=== PATIENT | male | born 1955 | race Caucasian/White ===

== ENCOUNTER 2024-03-02 08:38 | Outpatient (OUT) | payer OTHER, SELFPAY ==
--- NOTE | 2024-03-02 08:40 | CT_ITS ---
[address] [address] Patient Name: WILMA RENTERIA MRN: [id number] date: 1955 Sex: M Assigned Patient Location: CT Current Patient Location: CT Accession/Order Number: [id number] Exam Date: 03/02/2024 08:46 Report Date: 03/02/2024 13:22 At the request of: DULCE MARIA AGUILA Procedure: CT lung screening low-dose EXAMINATION: CT lung screening low-dose HISTORY: Nicotine Dependence F17.210 COMPARISON: 10/28/2013 TECHNIQUE: Axial, Coronal, and Sagittal images were created without the administration of IV contrast material. Dose reduction techniques were achieved by using automated exposure control and/or adjustment of mA and/or kV according to patient size and/or use of iterative reconstruction technique. FINDINGS: LUNGS: Moderate to severe diffuse centrilobular emphysema with an upper lobe predominance, progressed from the prior exam. Scattered solid noncalcified pulmonary nodules the largest along the right major fissure measuring 1.3 x 0.5 cm, axial image 107 minimally increased possibly related to slice selection. Additional subcentimeter pulmonary nodules, nonspecific PLEURA: No mass, effusion, or pneumothorax. VASCULATURE: No abnormality. BRANDEN: No mass or pathologic adenopathy. MEDIASTINUM: No mass or pathologic adenopathy. CARDIAC: No enlargement or pericardial effusion CORONARY ARTERIES: Coronary calcifications are mild. AORTA: No aortic aneurysm. Mild calcific atherosclerosis CHEST WALL: No mass or axillary adenopathy BONES: No bone lesion or fracture. LIMITED ABDOMEN: No suspicious findings. Limited images of the upper abdomen. OTHER: Negative. CT/CT lung screening low-dose IMPRESSION: LUNG SCREENING: Lung-RADS Category 2- Benign Appearance or Behavior. Nodules with a very low likelihood of becoming a clinically active cancer due to size or lack of growth. 2. Continue annual screening with LDCT in 12 months. Electronically authenticated by: HENRY LAWS Date: 03/02/2024 13:22
== END 2024-03-02 08:39 | disposition home or self-care (01) ==
LOC: CT 08:38
PROVIDERS: PCP Internal Medicine; Visit Provider Internal Medicine
DX: Z00.00 Encounter for general adult medical examination without abnormal findings (principal); F17.210 Nicotine dependence, cigarettes, uncomplicated; J43.1 Panlobular emphysema; F17.200 Nicotine dependence, unspecified, uncomplicated
CPT/HCPCS: 71271

== ENCOUNTER 2025-08-09 10:52 | Outpatient (OUT) | payer MEDICARE, SELFPAY ==
--- OUTSIDE RECORDS SUMMARY | 2025-08-09 10:56 | XMS_ITS | CCD ---
Author Organization [facility] Inform ion Partnership [facility] Care Team Providers Care School Photographs Detailer Name Role Phone TOD ORELLANA Unavailable Unavailable TOD ORELLANA Unavailable Unavailable TOD ORELLANA Unavailable Unavailable TOD ORELLANA Unavailable Unavailable HENRY LAWS V Unavailable Unavailable Jonel Anderson Admitting Unavailable Jonel Anderson Attending Unavailable NO FAMILY, PHYSICIAN Primary Care Unavailable Miya Mckinley Unavailable [phone] Tod Orellana MD Unavailable [phone] Tod Orellana MD Primary Care Provider Tod Orellana MD Unavailable TOD ORELLANA Attending Unavailable TOD ORELLANA Attending Unavailable Medications Current Medications MedicationDrug Class(es)DatesSig (Normalized)Sig (Original)[id number] 200 actuat albuterol 0.09 mg/actuat metered dose inhaler (1 source)beta2-Adrenergic AgonistStart: 45-53-8314bhts 1 puff(s) by inhalation every four to six hours as needed for wheezingAlbuterol Sulfate 90 mcg/actuation HFA aerosol inhaler Active 2 PUFF INHALATION EVERY 4-6 HOURS as needed for shortness of breath or wheezing 8.5 January 25, 2025 12:00amALPRAZolam 0.25 mg oral tablet (12 sources)BenzodiazepineStart: 12-22-2023 End: 16-76-3014zdax 1 tablet by mouth three times daily as needed for anxiety ALPRAZolam (Xanax) 0.25 MG tablet Indications: Grief reaction Take 1 tablet (0.25 mg) by mouth 3 (three) times a day as needed for anxiety 21 tablet 07/27/2025 08/03/2025 Activeamoxicillin 875 mg / clavulanate 125 mg oral tablet (1 source)Penicillin-class AntibacterialStart: 52-12-9962mssq 1 tablet by mouth every twelve hoursAmoxicillin-Pot Clavulanate 875-125 MG 1 tablet Orally every 12 hrs for 7 days Jun, Ixvmhx841 actuat budesonide 0.16 mg/actuat / formoterol fumarate 0.0048 mg/actuat / glycopyrrolate 0.009 mg/actuat metered dose inhaler (12 sources)Corticosteroid, beta2-Adrenergic AgonistStart: 07-27-2025 Mmmrpxn-Qkmhsqfaxbo-Mmdwdrulgn (Breztri Aerosphere) 160-9-4.8 MCG/ACT aerosol Indications: Panlobular emphysema (HCC) Inhale 2 puffs every 12 (twelve) hours 5.9 g 11 07/27/2025 ActiveStart: 11-41-0482Hnqihow-Glycopyrrol-Formoterol (Breztri Aerosphere) 160-9-4.8 MCG/ACT aerosol Indications: Panlobular emphysema (HCC) Inhale 2 puffs every 12 (twelve) hours 5.9 g 11 07/27/2025 ActiveStart: 35-65-6028Pigdvaidev-Glycopyr-Formoterol (Breztri Aerosphere) 160-9-4.8 mcg/actuation HFA aerosol inhaler Active 2 INH INHALATION Twice daily as needed January 25, 2025 12:00amStart: 12-08-2023 End: 06-57-9040Bpelggx-Glycopyrrol-Formoterol (Breztri Aerosphere) 160-9-4.8 MCG/ACT aerosol Indications: Panlobular emphysema (HCC) Inhale 2 puffs every 12 (twelve) hours 5.9 g 3 02/06/2025 07/27/2025 Discontinued(Reorder)Calcium Amino Acid Chelate 200 mg calcium tablet (1 source)Start: 77-53-8685Bfmtklu Amino Acid Chelate 200 mg calcium tablet Active MG PO January 25, 2025 12:00amCentrum - (1 source)Centrum - as directed Orally Activecholecalciferol 0.05 mg oral capsule (1 source)Vitamin DStart: 11-27-7923lgmb 1 capsule by mouth once daily Cholecalciferol (Vitamin D3) (Vitamin D3) 50 mcg (2,000 unit) capsule Active 50 MCG PO Daily January 25, 2025 12:00amdoxycycline hyclate 100 mg oral capsule (1 source)Tetracycline-class DrugStart: 40-99-3735rdxm 1 capsule by mouth twice dailyDoxycycline Hyclate 100 mg capsule Active 100 MG PO Twice daily 20 January 25, 2025 12:00amMultivit With Min-Folic Acid (Centrum Adult 50 Fresh-Fruity) 120 mcg tablet,chewable (1 source)Start: 40-63-7112ipob 1 tablet by mouth once dailyMultivit With Min- Folic Acid (Centrum Adult 50 Fresh-Fruity) 120 mcg tablet,chewable Active 1 TAB PO Daily January 25, 2025 12:00am24 hr nicotine 0.583 mg/hr transdermal system (5 sources)Cholinergic Nicotinic AgonistStart: 02-07-2025 End: 88-27-0454avsyvdbi (Nicoderm, Step 2) 14 MG/24HR patch Indications: Tobacco dependence use 1 patch topically every 24hrs 28 patch 3 02/07/2025 07/27/2025 DiscontinuedStart: 02-06-2025 End: 73-15-4285lfmds 1 dose transdermal route every twenty-four hoursnicotine (Nicoderm CQ) 14 MG/24HR patch Indications: Tobacco dependence Place 1 patch over 24 hourson the skin 1 (one) time each day at the same time 30 patch 1 02/06/2025 04/07/2025 ActivepredniSONE 20 mg oral tablet (1 source)Start: 10-70-8617mapo 2 tablets by mouth once dailyPrednisone 20 mg tablet Active 20 MG PO .COMPLEX January 25, 2025 12:00am Take 2 tabs po daily x 5 daystadalafil 10 mg oral tablet (12 sources)Phosphodiesterase 5 InhibitorStart: 09-01-2024 End: 31-02-8577ryva 1 tablet by mouth once daily as neededtadalafil (Cialis) 10 MG tablet Indications: Erectile dysfunction, unspecified erectile dysfunction type Take 1 tablet (10 mg) by mouth Daily as needed for erectile dysfunction 10 tablet 11 07/27/2025 07/27/2026 Active Completed/Discontinued Medications MedicationDrug Class(es)DatesSig (Normalized)Sig (Original)Brompheniramine / Pseudoephedrine (1 source)alpha-Adrenergic AgonistStart: 03-30-7897eafn 10 mL by mouth every six hours as neededBromfed DM 30-2-10 MG/5ML 10 ml as needed Orally every 6 hrs Oct, Not-Takingcyclobenzaprine hydrochloride 10 mg oral tablet (1 source)Muscle RelaxantStart: 90-96-6800dubc 1 tablet by mouth every eight hoursCyclobenzaprine HCl 10 MG 1 tablet as needed Orally Three times a day for 7 days Dec, Not-TakingmethylPREDNISolone 4 mg oral tablet (1 source)CorticosteroidStart: 60-87-0565Nvpkik 4 MG as directed Orally for 6 days Dec, Not-TakingToradol 30 mg/ml (1 source)Start: 83-63-3041Frtxagy 30 mg/ml Dec, 30 mgTriamcinolone (1 source)CorticosteroidStart: 74-33-0970TRTXNIJ - 10 mg Dec, 10 mg Problems Active Problems Problem ClassificationProblemDateDocumented DateEpisodic/ChronicAdjustment disorders (5 sources)Grief finding; Translations: [Adjustment disorder with depressed mood]28-70-5692PtzlfshZveakxcdzabpxx/social admission (4 sources)Patient encounter status; Translations: [Other specified counseling] 93-98-1685QzsbrecyUuku and rectal conditions (1 source)Rectal polyp; Translations: [Rectal polyp]Onset: 47-68-4192Pvvgzeje Chronic obstructive pulmonary disease and bronchiectasis (12 sources)Panacinar emphysema; Translations: [Panlobular emphysema]Onset: 688920-64-7255FrrglkzRxxklbhurgi deficiencies (1 source)Vitamin D deficiency; Translations: [Vitamin D deficiency, unspecified]00-89-1002LqoedlaJpdaluaxsjpbrz (17 sources)Primary osteoarthritis, left shoulder; Translations: [Arthritis of left acromioclavicular joint]Onset: 07-15-2017 Resolved: 866765-43-0180KzeqogoDucnv circulatory disease (2 sources)Elevated blood pressure; Translations: [Elevated blood-pressure reading, without diagnosis of hypertension]40-08-0799SxfnmqksQctnt injuries and conditions due to external causes (1 source)Unspecified injury of left wrist, hand and finger(s), initial encounterEpisodicOther male genital disorders (13 sources)Male erectile dysfunction, unspecified; Translations: [Impotence of organic origin]Onset: 491199-85-1313JlytowqUgikk nervous system disorders (8 sources)Chronic pain; Translations: [Other chronic pain]Onset: 02-13-2023 57-83-1380IqhzjrgVcjnd upper respiratory infections (8 sources)Chronic ethmoidal sinusitis; Translations: [Chronic ethmoidal sinusitis]Onset: 687081-93-6468EdxejtrGyydnlih codes; unclassified (1 source)History of colonoscopy; Translations: [Other specified postprocedural states]48-87-1946VzfujmoqUsub and subcutaneous tissue infections (1 source)Cellulitis of left fingerEpisodicSubstance-related disorders (14 sources)Tobacco dependence syndrome; Translations: [Nicotine dependence, unspecified, uncomplicated]Onset: hronic Past or Other Problems Problem ClassificationProblemDateDocumented DateEpisodic/ChronicMycoses (8 sources)Pityriasis versicolor; Translations: [Pityriasis versicolor]Onset: 457956-33-6224CixnfgluCslqi and unspecified benign neoplasm (8 sources)Adenomatous polyp of rectum; Translations: [Benign neoplasm of rectum]Onset: 681614-96-9239AdhpfulsLkaaj and unspecified benign neoplasm (8 sources)Polyp of colon; Translations: [Polyp of colon]Onset: 02-13-2023 Resolved: 296680-31-9315PihmmyxgGjrfk non-traumatic joint disorders (4 sources)Pain in left shoulder; Translations: [PAIN IN LEFT SHOULDER]Onset: 00-88-3265Ykurrkdq Results Test NameValueInterpretationReference RangeFacilityCT LUNG SCREENING LOW DOSEon 12-78-7630[place]pHart[place], [place] [address] [place] Scan Report Signed Patient: SLY RENTERIA MR#: [id number] : 1955 Acct:[id number] Age/Sex: 68 / M ADM Date: 03/02/24 Loc: CT Attending Dr: TOD ORELLANA Ordering Physician: TOD ORELLANA Date of Service: 03/02/24 Procedure(s): CT lung screening low-dose Accession Number(s): [id number] cc: TOD ORELLANA [place] [id number] Patient Name: SLY RENTERIA MRN: [id number] date: 1955 Sex: M Assigned Patient Location: CT Current Patient Location: CT Accession/Order Number: [id number] Exam Date: 03/02/2024 08:46 Report Date: 03/02/2024 13:22 At the request of: TOD ORELLANA Procedure: CT lung screening low-dose EXAMINATION: CT lung screening low-dose HISTORY: Nicotine Dependence F17.210 COMPARISON: 10/28/2013 TECHNIQUE: Axial, Coronal, and Sagittal images were created without the administration of IV contrast material. Dose reduction techniques were achieved by using automated exposure control and/or adjustment of mA and/or kV according to patient size and/or use of iterative reconstruction technique. FINDINGS: LUNGS: Moderate to severe diffuse centrilobular emphysema with an upper lobe predominance, progressed from the prior exam. Scattered solid noncalcified pulmonary nodules the largest along the right major fissure measuring 1.3 x 0.5 cm, axial image 107 minimally increased possibly related to slice selection. Additional subcentimeter pulmonary nodules, nonspecific PLEURA: No mass, effusion, or pneumothorax. VASCULATURE: No abnormality. BRANDEN: No mass or pathologic adenopathy. MEDIASTINUM: No mass or pathologic adenopathy. CARDIAC: No enlargement or pericardial effusion CORONARY ARTERIES: Coronary calcifications are mild. AORTA: No aortic aneurysm. Mild calcific atherosclerosis CHEST WALL: No mass or axillary adenopathy BONES: No bone lesion or fracture. LIMITED ABDOMEN: No suspicious findings. Limited images of the upper abdomen. OTHER: Negative. CT/CT lung screening low-dose IMPRESSION: LUNG SCREENING: Lung-RADS Category 2- Benign Appearance or Behavior. Nodules with a very low likelihood of becoming a clinically active cancer due to size or lack of growth. 2. Continue annual screening with LDCT in 12 months. Electronically authenticated by: HENRY LAWS Date: 03/02/2024 13:22 Dictated By: Henry Laws M.D. Signed By: 03/02/24 1325 DD/ 1322 TD/TT: Care Transition Mgr:ARANZAadiology, Radiologist, - 03/02/2024 [place] [address] CT Scan Report Signed Patient: SLY RENTERIA MR#: [id number] : 1955 Acct:[id number] Age/Sex: 68 / M ADM Date: 03/02/24 Loc: CT Attending Dr: TOD ORELLANA Ordering Physician: TOD ORELLANA Date of Service: 03/02/24 Procedure(s): CT lung screening low-dose Accession Number(s): [id number] cc: TOD ORELLANA [place] [id number] Patient Name: SLY RENTERIA MRN: [id number] date: 1955 Sex: M Assigned Patient Location: CT Current Patient Location: CT Accession/Order Number: [id number] Exam Date: 03/02/2024 08:46 Report Date: 03/02/2024 13:22 At the request of: TOD ORELLANA Procedure: CT lung screening low-dose EXAMINATION: CT lung screening low-dose HISTORY: Nicotine Dependence F17.210 COMPARISON: 10/28/2013 TECHNIQUE: Axial, Coronal, and Sagittal images were created without the administration of IV contrast material. Dose reduction techniques were achieved by using automated exposure control and/or adjustment of mA and/or kV according to patient size and/or use of iterative reconstruction technique. FINDINGS: LUNGS: Moderate to severe diffuse centrilobular emphysema with an upper lobe predominance, progressed from the prior exam. Scattered solid noncalcified pulmonary nodules the largest along the right major fissure measuring 1.3 x 0.5 cm, axial image 107 minimally increased possibly related to slice selection. Additional subcentimeter pulmonary nodules, nonspecific PLEURA: No mass, effusion, or pneumothorax. VASCULATURE: No abnormality. BRANDEN: No mass or pathologic adenopathy. MEDIASTINUM: No mass or pathologic adenopathy. CARDIAC: No enlargement or pericardial effusion CORONARY ARTERIES: Coronary calcifications are mild. AORTA: No aortic aneurysm. Mild calcific atherosclerosis CHEST WALL: No mass or axillary adenopathy BONES: No bone lesion or fracture. LIMITED ABDOMEN: No suspicious findings. Limited images of the upper abdomen. OTHER: Negative. CT/CT lung screening low-dose IMPRESSION: LUNG SCREENING: Lung-RADS Category 2- Benign Appearance or Behavior. Nodules with a very low likelihood of becoming a clinically active cancer due to size or lack of growth. 2. Continue annual screening with LDCT in 12 months. Electronically authenticated by: HENRY LAWS Date: 03/02/2024 13:22 Dictated By: Henry Laws M.D. Signed By: 03/02/241324 DD/ 21 TD/TT: Care Transition Mgr: [facility] HealthcareRadiology Study observation (narrative)[facility] HealthcareCT LUNG SCREENING LOW DOSEOrdered By: Radiologist Radiology on 92-23-1695LXJW [employer] Work Phone: Log 02-05-2023L Specimen: [id number] Received: 02/05/23 Status: JOSE Salomon Num: [id number] Spec Type: Surgical Subm Dr: Jonel Anderson DO Tissues: A Colon Biopsy (RECTAL POLYP X3) Procedures: HE/2, Gross/Micro L4 Age/ Patient Sex Location Account Attending Physician Sly Renteria /[facility] [id number] Jonel Anderson DO SPEC NUM: [id number] RECD: 02/05/23 STATUS: JOSE SALOMON NUM: [id number] MADDI: 02/05/[address] [facility] [address]: Jonel Anderson DO ENTERED: 02/05/[address] [facility] [address]: J[facility] SPEC TYPE: Surgical DEPT: S ENTERED BY: [id number] RECV BY: [id number] ORDERED: HE/2, Gross/Micro L4 ORDERED: HE/2, Gross/Micro L4 Pathological Diagnosis Rectum, polyps, biopsy: - Fragments of tubular adenoma. - Fragments of hyperplastic polyp. Clinical Information Positive colo-guard, family history colon cancer Gross Description Received in formalin labeled with the patient's name, number and rectal polyps ?3 are multiple fragments of soft plummer tissue measuring 1.7 x 1.5 x 0.3 cm in aggregate. Entirely submitted in one cassette labeled A1. Microscopic Description Two H E slides reviewed. The microscopic examination confirms the diagnosis. CPT Codes 25093 Specimen: [id number] Received: 02/05/23 Status: JOSE Salomon Num: [id number] Spec Type: Surgical Subm Dr: Jonel Anderson DO Tissues: A Colon Biopsy (RECTAL POLYP X3) Procedures: HE/2, Gross/Micro L4 Patient: Sly Renteria [id number] (Continued) Signed (signature on file) Aieme Marks MD 02/06/23 [facility] HospitalXR SHOULDER LT 2V OR >on 89-28-6040FQ SHOULDER LT 2V OR >[address] [place] [address] Phone Patient: SLY RENTERIA Exam Date: 07/01/2017DOB: 1955 Gender:M : DR TOD ORELLANA Admission #: [id number] : Order #: [id number] HERE TO VIEW EXAM RADIOLOGY REPORT PROCEDURE: RADIOGRAPH SHOULDER LEFT MIN 2 VIEWS COMPARISON: None. INDICATIONS: Acute pain of left shoulder M25.512 FINDINGS: BONES: No acute fracture or dislocation. Mild osteoarthropathy of the acromioclavicular jointSOFT TISSUES: No visible soft tissue swelling or radiopaque foreign body. OTHER: Negative. CONCLUSION: 1. Mild acromioclavicular joint osteoarthritis Dictated by: Henry Laws M.D. on 07/01/2017 at 11:33 Approved by:Henry Laws M.D. on 07/01/2017 at 11:34[facility] Vital Signs Date TimeVital SignValuePerforming KgriajbzsKcqxdgio02-52-2604 09:57-0500Body wxxojr356.6 cmTod Orellana MD Work Phone: [phone]-Riv[employer] CommunicationsTwo Rivers Psychiatric HospitalSoymynfwdc50-69-1951 09:57-0500Body mass index (BMI) [Ratio]23.86 kg/a8EimxvjTod Orellana MD Work Phone: [phone] CommunicationsTwo [facility] Psychiatric HospitalUzmahlncmi92-06-6333 09:57-0500Body neihay17.05 kgTod Orellana MD Work Phone: [phone] HospitalRivulet CommunicationsTwo [facility] Psychiatric HospitalKykdrmiyhg64-79-9057 09:57-0500Diastolic blood plecrzbp70 mm[Hg]Tod Orellana MD Work Phone: [phone] CommunicationsTwo [facility] Psychiatric HospitalTfhcmkbgyr64-24-2005 09:57-0500Heart rate60 /min Tod Orellana MD Work Phone: [phone] HospitalRivulet CommunicationsTwo [facility] Psych[facility] HospitalLmaahdtpck44-51-7790 09:57-9970MeT5% (BldA) [Mass fraction]99 %Tod Orellana MD Work Phone: [phone] CommunicationsTwo [facility] Psychiatric HospitalTonslugqax01-28-7661 09:57-0500Systolic blood dxarxjva557 mm[Hg]Tod Orellana MD Work Phone: [phone] CommunicationsTwo [facility] Psychiatric HospitalYgztrzkvid97-44-7159 16:05-0400Body hoxvpx179.5 cmTod Orellana MD Work Phone: [phone]-[facility] SolarmanTwo Rivers Psychiatric HospitalIhotxokhfh06-40-7859 16:05-0400Body mass index (BMI) [Ratio]25.24 kg/j4Wxhhszmaryjane Orellana MD Work Phone: [facility] HospitalRhfbciiwyb50-97-0961 16:05-0400Body bgmwzy22.6 kg Tod Orellana MD Work Phone: [facility] HospitalZjoruwafac74-75-1886 16:05-0400Diastolic blood hfajeies11 mm[Hg]Tod Orellana MD Work Phone: [facility] HospitalRxnelnmxjf76-52-9219 16:05-0400Heart rate81 /min Tod Orellana MD Work Phone: [phone] HospitalRaraxwalhc57-76-0979 16:05-1713UxZ1% (BldA) [Mass fraction]99 %Tod Orellana MD Work Phone: [facility] HospitalClzlqrbzjo99-27-4626 16:05-0400Systolic blood mm[Hg]Tod Orellana MD Work Phone: [facility] HospitalQhgkpqqtof19-22-2409 11:03-0400Body ctftly485.64 cm[facility]05-[facility]2025 11:03-0400Body mass index (BMI) [Ratio]22.6 kg/r1VfvdkgkvzFort [facility] Hospital05-07-2025 11:03-0400Body iagcrfdxwma42.7 [degF][facility]05-07-2025 11:03-0400Body rdumez38.67 kgFort [facility]05-07-2025 11:03-0400Diastolic blood mm[Hg][facility]05-07-2025 11:03-0400 Heart rate74 /[facility]05-07-2025 11:03-0400 Respiratory rate18 /[facility]05-07-2025 11:03-0400 SaO2% (BldA) [Mass fraction]97 %[facility]05-07-2025 11:03-0400Systolic blood twaeqnbe181 mm[Hg][facility] 07-16-2023 09:45-0400Body tldvas805.64 cmMiya Mckinley Other [facility] Other 10-26-2023 09:45-0400Body mass index (BMI) [Ratio] 22.76 kg/m0EmkncxslMiya Kamaraezequiel Other [facility] Other 10-26-2023 09:45-0400Body iwnecenatqi63.1 [degF] Miya Arlen Other [facility] Other 10-26-2023 09:45-0400Body eueblt36.96 kgMiya Mcmullenmanny Other [facility] Other 10-26-2023 09:45-0400Diastolic blood mm[Hg] Miyadanyell Mckinley Other [facility] Other 10-26-2023 09:45-0400Respiratory rate18 /minMiya Mcmullenmanny Other [facility] Other 10-26-2023 09:45-2557AvP2% (BldA) [Mass fraction]96 % Miya Arlen Other [facility] Other 10-26-2023 09:45-0400Systolic blood mlwenfcz421 mm[Hg] Miya Arlen Other [facility] Other Encounters Encounter DateEncounter TypeCare ProviderFacilityStart: 07-27-2025 End: 51-64-0283Oirucl David Orellana MD Work Phone: [facility] MedinceStart: 07-27-2025 End: 24-33-3402Kxrmsdjoaquin Orellana MD Work Phone: [facility] MedinceStart: 07-27-2025 End: 46-16-0929Iqucs of hemosiderin, Torito Orellana MD Work Phone: noms HealthcareStart: 07-27-2025 End: 40-05-7796Rehbruk encounter procedureTod Orellana MD Work Phone: [facility] MedinceComment on above:Routine general medical examination at health care facility (Primary Dx); ACP (advance care planning); Grief reaction; Tobacco dependence; Prostate cancer screening; Panlobular emphysema (HCC); Elevated blood pressure reading; Erectile dysfunction, unspecified erectile dysfunction typeStart: 07-27-2025 End: 34-88-6254jjtqbvcumwSBEVQV B BERRYNot AvailableStart: 02-06-2025 End: 27-29-5658Dxskjo outpatient visit 25 minutesDamaryjane Orellana MD Work Phone: noms CI FMComment on above:Panlobular emphysema (CMS/HCC) (Primary Dx); Grief reaction; Erectile dysfunction, unspecified erectile dysfunction type; Tobacco dependenceStart: 02-06-2025 End: 08-13-4826vxpqsfqjrdSLPTQI B BERRYNot AvailableStart: 02-06-2025 End: 68-13-9859Qtpkeujoaquin Orellana MD Work Phone: NOD[facility] CI FMStart: 02-06-2025 End: 66-48-3948Hpvhuljoaquin Orellana MD Work Phone: [facility] CI FMStart: 01-25-2025 End: 66-40-0098leciwaetbtRpceanvjrTrumbull Regional Medical Center Work Phone: Start: 01-25-2025 End: 54-89-8027Hjzybko encounter procedureUnc Health Rex [facility] Work Phone: Start: 09-05-2024 End: 21-79-9615BapmsvKlrkmn B Berry MD Work Phone: noms CI FMComment on above:Grief reaction (CMS/HCC) Start: 03-02-2024 End: 75-16-4266Atotokulw Result EncounterTod Orellana MD Work Phone: noms External Department UnsolicitedStart: 03-02-2024 End: 52-59-3281Earvopbfk Result EncounterTod Orellana MD Work Phone: noms External Department UnsolicitedStart: 07-16-2023 End: 26-61-2733kriapnwocmQwfrdnjz Rohrbacher Other [facility] [employer] Other Start: 76-84-9256Ljidkt outpatient visit 15 minutes Miya Juarez [facility] ClydeStart: 02-05-2023 End: 12-00-7393mrakpaxqbyUuih LaffayFacility:[facility] Start: 07-01-2017 End: 79-69-2485SnvxveoodaJRYVFK BERRYFacility:H1 Procedures DateProcedureProcedure DetailPerforming ClinicianStart: 24-04-2374EO LUNG SCREENING LOW DOSEDbryant Orellana MD Work Phone: Start: 48-80-5501NadfupsohfgCutrsd Berry MD Work Phone: Plan of Treatment DateCare ActivityDetailAuthorStart: 88-93-9856Litzbzdwr for malignant neoplasm of colonNOMS HealthcareStart: 11-06-2026Medicare Annual Wellness (AWV)Medicare Annual Wellness (AWV)[facility] HealthcareStart: 46-95-9067Cidsafzyrvrm Vaccine: 65+ Years (1 of 2 - PCV)Pneumococcal Vaccine: 65+ Years (1 of 2 - PCV)[facility] HealthcareComment on above:Postponed from 1975 (Patient Refused)Start: 83-63-4575Nzdewwntl vaccinationInfluenza Vaccine (#1)[facility] HealthcareComment on above:Postponed from 05/22/2025 (Patient Refused)Start: 18-96-2537Tgexslgmf for malignant neoplasm of colonFIT-DNANOMS HealthcareStart: 07-27-2025 End: 26-37-8489Lzsccllnazvqs metabolic 2000 panel - Serum or PlasmaComprehensive metabolic panel Lab Routine Routine general medical examination at health care facility Panlobular emphysema (HCC) Elevated blood pressure reading Expected: 07/27/2025 (Approximate), Expires: 07/27/2026NO[facility] HealthcareComment on above: Expected: 07/27/2025 (Approximate), Expires: 07/27/2026Start: 07-27-2025 End: 15-80-4747ZB Chest for screening WO contrastLung screening follow up CT chest wo IV contrast Imaging Routine Tobacco dependence Expected: 07/27/2025, Expires: 07/27/2026[facility] Healthcare Work Phone: Comment on above:Expected: 07/27/2025, Expires: 07/27/2026Start: 07-27-2025 End: 38-28-6417Dwpga 1996 panel - Serum or PlasmaLipid panel Lab Routine Routine general medical examination at health care facility Panlobular emphysema (HCC) Elevated blood pressure reading Expected: 07/27/2025 (Approximate), Expires: 07/27/2026[facility] HealthcareComment on above:Expected: 07/27/2025 (Approximate), Expires: 07/27/2026Start: 07-27-2025 End: 06-88-8094Ievzrbx encounter procedureNOGA Curtis Family MedinceComment on above:ArrivedStart: 02-56-8218BHAFZ-19 Vaccine ( season)COVID-19 Vaccine ( season)[facility] HealthcareStart: 31-72-1401Drwsrgbpt vaccinationNOGA HealthcareStart: 06-07-2025Medicare Annual Wellness (AWV) Medicare Annual Wellness (AWV)[facility] HealthcareStart: 77-84-3056Uhqsdkuvntvc Vaccine: 65+ Years (1 of 2 - PCV)Pneumococcal Vaccine: 65+ Years (1 of 2 - PCV) [facility] HealthcareComment on above:Postponed from 1962 (Patient Refused) Postponed from 1975 (Patient Refused)Start: 02-06-2025 End: 03-74-0757Dlmwozu encounter lpuqgmohh38/19/2025 4:15 PM EDT Office Visit [facility] [address] [facility] [address] [place] [id number] Tod Orellana MD [address] [facility] [address] [place] [address] ArrivedNOMS CI FMComment on above:ArrivedStart: 05-22-2024 Influenza vaccinationInfluenza Vaccine (#1)[facility] HealthcareStart: 1975 Pneumococcal Vaccine: 65+ Years (1 of 2 - PCV)Pneumococcal Vaccine: 65+ Years (1 of 2 - PCV)[facility] HealthcareStart: 86-21-1669Mwjlgwhcc for malignant neoplasm of colonNOMS HealthcareStart: 57-52-2319Kwgrquzfv for malignant neoplasm of lung Lung Cancer Screening Shared Decision MakingNOGA HealthcareProstate specific Ag [Mass/volume] in Serum or PlasmaPSA Lab Routine Routine general medical examination at health care facility Prostate cancer screening Ordered: 07/27/2025NOGA HealthcareComment on above:Ordered: 07/27/2025 Payers DatePayer CategoryPayerPolicy [id number] 2023Medicare (Managed Care)[id number] Social History DateTypeDetailFacilityUnknown if ever smokedFort Ashby [employer] Other Start: 02-26-2024 End: 69-04-2462Lvs Assigned At [facility] [employer] Other Start: 53-71-8681Lnwuifp smoking status NHISSmokes tobacco dailyNOGA HealthcareHistory of tobacco useCigarette SmokerNOGA HealthcareStart: 02-26-2024 End: 42-33-3513Avrsejjhfb smoked current (pack per day) - Mgeeoqdi2ZJFT HealthcareStart: 50-34-3752Hyvtrtq use and exposureSmokeless tobacco non-user NOM HealthcareStart: 02-26-2024 End: 84-13-1265Schgtbxxy beverage intakeCurrent drinker of alcohol (finding)[facility] HealthcareStart: 27-22-0163Xuaitae Comment1-2 drinks every 2-3 times a week. caffeine intake: 1-2 cups of coffee, soda per day.[facility] HealthcareStart: 71-15-9082Mce assigned at [facility] [place]lotteNot on fileBE[facility] HealthcareStart: 01-25-2025 Tobacco smoking status NHISSmoker (finding)[facility] Start: 28-39-2124TlrPkyd (finding)[facility] Rehabilitationtart: 09-33-4074Nmz [facility]igned At [facility]: 55-27-7915RcvNgtdJADP Healthcare Functional Status PpzfHhsppzlzkxTtakuoYidxvnds19-57-0182Hxicvxy Health Questionnaire 2 item (PHQ- 2) [Reported][facility] History of Present illness Narrative 07-27-2025 Note Date & UmffBcqwIqtynpvc55-12-2247 History of Present illness Narrative* Tod Orellana MD - 07/27/2025 10:00 AM EST Images from the original note were not included. Subjective : Chief Complaint: Sly Renteria is an 70 y.o. male here for an annual wellness visit. I have reviewed and reconciled the history and medication list with the patient today. Current Outpatient Medications Medication Sig Dispense Refill ALPRAZolam (Xanax) 0.25 MG tablet Take 1 tablet (0.25 mg) by mouth 3 (three) times a day as needed for anxiety 21 tablet 0 Mrtigni-Yscqkgtiqsx-Eaxjpbvhci (Breztri Aerosphere) 160-9-4.8 MCG/ACT aerosol Inhale 2 puffs every 12 (twelve) hours 5.9 g 11 tadalafil (Cialis) 10 MG tablet Take 1 tablet (10 mg) by mouth Daily as needed for erectile dysfunction 10 tablet 11 No current facility-administered medications for this visit. Review of Systems List of current healthcare providers: Patient Care Team: Tod Orellana MD as PCP - General (Internal Medicine) Medicare Annual Visit Over the past 2 weeks, how often have you been bothered by any of the following problems? Little interest or pleasure in doing things: Not at all Feeling down, depressed, or hopeless: Not at all Patient Health Questionnaire-2 Score: 0 Mckeon Fall Risk History of Falling, Immediate or Within 3 Months: No Secondary Diagnosis: No Ambulatory Aid: Walks without aid/bedrest/nurse assist Health Risk Assessment Form Do you need help eating, bathing, using the toilet, dressing, or getting around your home?: No Can you prepare your own meals?: Yes Can you do your own housework without help?: Yes Can you shop for groceries or clothes without help?: Yes Do you exercise for about 20 minutes 3 or more days a week?: Yes How confident are you that you can control and manage most of your health problems?: Very confident Can you mange your money, credit cards and accounts, pay bills and taxes?: Yes Cognitive Screening Three Word Registration: Village, Kitchen, Baby Clock Drawing: Normal Clock - 2 Three Word Recall: All 3 words correct - 3 Total Score (0-5 Points): 5 Pain Assessment Pain Score: 5 - Moderate pain Advance Care Planning Do you have a living will?: Yes Do you have a medical power of collision mechanic?: Yes Who is your medical power of collision mechanic?: Objective : BP 128/76 Pulse 60 Ht 5' 4 Wt 139 lb SpO2 99% BMI 23.86 kg/m No results found. Physical Exam Constitutional: General: He is not in acute distress. Appearance: He is normal weight. He is not ill-appearing. HENT: Head: Normocephalic. Cardiovascular: Rate and Rhythm: Normal rate and regular rhythm. Heart sounds: Normal heart sounds. No murmur heard. Pulmonary: Effort: Pulmonary effort is normal. Prolonged expiration present. Breath sounds: Decreased air movement present. Musculoskeletal: General: No swelling. Right lower leg: No edema. Left lower leg: No edema. Neurological: Mental Status: He is alert. Psychiatric: Mood and Affect: Mood normal. Assessment/Plan : The following health maintenance schedule was reviewed with the patient and provided in printed form in the after visit summary: Health Maintenance Topic Date Due Lung Cancer Screening Shared Decision Making Never done Medicare Annual Wellness (AWV) 02/25/2025 COVID-19 Vaccine (2024- season) 2025 Influenza Vaccine (1) 03/20/2026 (Originally 05/22/2025) Pneumococcal Vaccine: 65+ Years (1 of 2 - PCV) 07/27/2026 (Originally 1975) Colorectal Cancer Screening 02/05/2033 Advance Care Planning Assessment/Plan Diagnoses and all orders for this visit: Routine general medical examination at health care facility - Comprehensive metabolic panel; Future - Lipid panel; Future - PSA ACP (advance care planning) Grief reaction - ALPRAZolam (Xanax) 0.25 MG tablet; Take 1 tablet (0.25 mg) by mouth 3 (three) times a day as needed for anxiety Tobacco dependence - Lung screening follow up CT chest wo IV contrast; Future Prostate cancer screening - PSA Panlobular emphysema (HCC) - Comprehensive metabolic panel; Future - Lipid panel; Future - Pvhyjia-Dkypveizwcn-Pfykfyjrxd (Breztri Aerosphere) 160-9-4.8 MCG/ACT aerosol; Inhale 2 puffs every 12 (twelve) hours Elevated blood pressure reading - Comprehensive metabolic panel; Future - Lipid panel; Future Erectile dysfunction, unspecified erectile dysfunction type - tadalafil (Cialis) 10 MG tablet; Take 1 tablet (10 mg) by mouth Daily as needed for erectile dysfunction Other orders - Follow Up In Family Medicine; Future Follow up with Dr. Tod Orellana in 6 months (on 01/23/2026). Orders Placed This Encounter Procedures Lung screening follow up CT chest wo IV contrast Standing Status: Future Expected Date: 07/27/2025 Expiration Date: 07/27/2026 Reason for exam:: screening Comprehensive metabolic panel Standing Status: Future Number of Occurrences: 1 Expected Date: 07/27/2025 Expiration Date: 07/27/2026 Print requisition?: No Lipid panel Standing Status: Future Number of Occurrences: 1 Expected Date: 07/27/2025 Expiration Date: 07/27/2026 PSA Print requisition?: No Electronically signed by Tod Orellana MD on July 27, 2025 documented in this encounterNOMS Healthcare History of Present illness Narrative 02-06-2025 Note Date & JxlhLcbzGwytxtem47-38-4553 History of Present illness Narrative* Tod Orellana MD - 02/06/2025 4:15 PM EDT Images from the original note were not included. HPI Med Refill Additional comments: Xanax,breztri, tadalafil-- DM [place] Last edited by Cristiana Barth LPN on 02/06/2025 4:11 PM. Subjective Patient ID: Sly Renteria is a 69 y.o. male who presents for Med Refill (Xanax,breztri, tadalafil-- DM [place]) and COPD. COPD Patient complains of dyspnea with exertion. Patient uses 1 pillows at night. Patient currently is not on home oxygen therapy.. Respiratory history: emphysema. Pt does still smoke but has cut back Pt states he was not sure if he has COPD or not Med Refill Current Outpatient Medications on File Prior to Visit Medication Sig Dispense Refill [DISCONTINUED] ALPRAZolam (Xanax) 0.25 MG tablet Take 1 tablet (0.25 mg) by mouth 3 (three) times aday as needed for anxiety for up to 7 days 21 tablet 0 [DISCONTINUED] Jmwxuox-Fjsqjazkfxa-Ghjathshbz (Breztri Aerosphere) 160-9-4.8 MCG/ACT aerosol Inhale2 puffs every 12 (twelve) hours 5.9 g 3 [DISCONTINUED] tadalafil (Cialis) 10 MG tablet Take 1 tablet (10 mg) by mouth Daily as needed for erectile dysfunction 10 tablet 11 No current facility-administered medications on file prior to visit. I have reviewed and reconciled the history and medication list with the patient today. No Known Allergies Social History Tobacco Use Smoking status: Every Day Current packs/day: 1.00 Average packs/day: 1 pack/day for 40.0 years (40.0 ttl pk-yrs) Types: Cigarettes Smokeless tobacco: Never Vaping Use Vaping status: Never Used Substance Use Topics Alcohol use: Yes Comment: 1-2 drinks every 2-3 times a week. caffeine intake: 1-2 cups of coffee, soda per day. Drug use: Never Comment: Has not used any drugs other than those for medical reasons for the past 12 months Family History Problem Relation Name Age of Onset Arthritis Mother Colon cancer Father Past Medical History: Diagnosis Date Chronic ethmoidal sinusitis History of adenomatous polyp of colon Panlobular emphysema (CMS/HCC) Tinea versicolor Past Surgical History: Procedure Laterality Date COLONOSCOPY 2013 FINGER AMPUTATION Right right index finger amputation Visit Vitals BP 124/70 Pulse 81 Ht 5' 2 Wt 138 lb SpO2 99% BMI 25.24 kg/m Smoking Status Every Day BSA 1.65 m Review of Systems Objective Physical Exam Constitutional: General: He is not in acute distress. Appearance: He is normal weight. He is not ill-appearing. HENT: Head: Normocephalic. Cardiovascular: Rate and Rhythm: Normal rate and regular rhythm. Heart sounds: Normal heart sounds. No murmur heard. Pulmonary: Effort: Pulmonary effort is normal. Prolonged expiration present. Breath sounds: Decreased air movement present. Musculoskeletal: General: No swelling. Right lower leg: No edema. Left lower leg: No edema. Neurological: Mental Status: He is alert. Psychiatric: Mood and Affect: Mood normal. Assessment/Plan Diagnoses and all orders for this visit: Panlobular emphysema (CMS/HCC) - Bafiimo-Jovadlxlfpn-Eflufgbvxm (Breztri Aerosphere) 160-9-4.8 MCG/ACT aerosol; Inhale 2 puffs every 12 (twelve) hours Grief reaction - ALPRAZolam (Xanax) 0.25 MG tablet; Take 1 tablet (0.25 mg) by mouth 3 (three) times a day as needed for anxiety for up to 7 days Erectile dysfunction, unspecified erectile dysfunction type - tadalafil (Cialis) 10 MG tablet; Take 1 tablet (10 mg) by mouth Daily as needed for erectile dysfunction Tobacco dependence - nicotine (Nicoderm CQ) 14 MG/24HR patch; Place 1 patch over 24 hours on the skin 1 (one) time each day at the same time Follow up in about 3 months (around 05/09/2025) for Wellness. [facility] Note 09-05-2024 Note Date & JvjdSzdkXpgbxwnh98-78-2031 Telephone encounter Note* Telephone Encounter - Celina Acuna - 09/05/2024 2:42 PM EST ALPRAZolam (Xanax) 0.[address] [facility] [place] [facility] Healthcare Note 09-05-2024 Note Date & YtbiPbmnPukcubbb95-89-3062 Miscellaneous Notes* Telephone Encounter - Celina Acuna - 09/05/2024 2:42 PM EST ALPRAZolam (Xanax) 0.25 MG tablet [facility] [place] [facility] Evaluation note 07-16-2023 Note Date & WsyhKtxcWcxxdoyo15-60-2263 Evaluation note* Encounter Date Diagnosis Assessment Notes Treatment Notes Treatment Clinical Notes Jun, Cellulitis of finger of left hairston d (ICD-10 - L03.012) Take antibiotic as directed, and complete full course even if symptoms are no longer present. Take ibuprofen/Tylenol as needed for pain and discomfort. Wash area with warm soapy water twice daily, and pat dry. Cover area with bandage if potential exposure to dirty environment and while working. Mayleave area open to air when at home. Patient instructed to monitor symptoms closely. Patient shouldfollow up with PCP or return to if symptoms persist or worsen despite treatment. Patient verbalized understanding and agreement with treatment plan. Jun,Finger injury, left, initial encounter (ICD-10 - S69.92XA) [facility] Other Evaluation note Note Date & TypeNoteFacilityEvaluation note* Diagnosis Grief reaction (CMS/HCC) Adjustment disorder with depressed mood documented in this encounter [facility] Evaluation note Note Date & TypeNoteFacilityEvaluation noteNo assessment information available [facility] Work Phone: Evaluation note Note Date & TypeNoteFacilityEvaluation note* Diagnosis Panlobular emphysema (CMS/HCC)- Primary Other emphysema Grief reaction Adjustment disorder with depressed mood Erectile dysfunction, unspecified erectile dysfunction type Tobacco dependence Tobacco use disorder documented in this encounter [facility] Evaluation note Note Date & TypeNoteFacilityEvaluation note* Diagnosis Routine general medical examination at health care facility- Primary Routine general medical examination at a health care facility ACP (advance care planning) Other specified counseling Grief reaction Adjustment disorder with depressed mood Tobacco dependence Tobacco use disorder Prostate cancer screening Special screening for malignant neoplasm of prostate Panlobular emphysema (HCC) Other emphysema Elevated blood pressure reading Elevated blood pressure reading without diagnosis of hypertension Erectile dysfunction, unspecified erectile dysfunction type documented in this encounter [facility] History general Narrative - Reported Note Date & TypeNoteFacilityHistory general Narrative - Reported* Type Description Date Surgical History finger [facility] Other Summary Purpose Family History No Family History Records Found Relationship Condition Age at Onset Recorded Date/T homa mother Unknown Advance Directives No Advanced Directives Records Found Advance Directive Response Recorded Date/ Time Advance Directives No January 02 8:35am Chief Complaint and Reason for Visit Chief Complaint Admit Date Chest congestion January 25, 2025 10:35a m Additional Source Comments (unrecognized sect ion and content) No Status Records FoundNo Status Records FoundNo Status Records Found INFORMATION SOURCE (unrecogn ized section and content) DATE CREATED AUTHOR 03/16/2018 [facility] DATE CREATED AUTHOR AUTHOR'S ORGANIZ ATION 02/28/2023 [facility] DATE CREATED AUTHOR AUTHOR'S ORGANIZ ATION 07/29/2025 [facility] EPIC REASON FOR VISIT (unrecogniz ed section and content) ReasonOnset DateCommentsMed [id number] Refill Xanax,breztri, tadalafil-- DM clydeCOPDReasonCommentsMedicare Annual Wellness Visit Subsequent Care Teams (unrecognized sec tion and content) Team MemberRelationshipSpecialtyStart DateEnd Date Tod Orellana MD [address] [facility] [address] [place] [address] PCP - Devoted09/21/22 Tod Orellana MD [address] [facility] [address] [place] [address] PCP - GeneralInternal Medicine02/13/23 Team Status: Active Member Role Status Dates PHYSICIAN NO FAMILY Primary Care Provider Active Team Status: Inactive Member Role Status Dates PHYSICIAN NO FAMILY Primary Care Provider Active Start: January 25, 2025 End: January 25, 2025Hemalatha Haynes ProviderActiveStart: January 25, 2025 End: January 25, 2025Team MemberRelationshipSpecialtyStart DateEnd Date Tod Orellana MD [address] [facility] [address] [place] [address] PCP - GeneralInternal Medicine02/13/23Team MemberRelationshipSpecialtyStart Date End Date Tod Orellana MD [address] [facility] [address] [place] [address] PCP - GeneralInternal Medicine02/13/23Team MemberRelationshipSpecialtyStart Date End Date Tod Orellana MD [address] [facility] [address] [place] [address] PCP - Devoted09/21/2311 Tod Orellana MD [address] [facility] [address] [place] [address] PCP - GeneralInternal Medicine02/13/23Team MemberRelationshipSpecialtyStart Date End Date Tod Orellana MD [address] [facility] [address] [place] [address] PCP - GeneralInternal Medicine02/13/23Team MemberRelationshipSpecialtyStart Date End Date Tod Orellana MD [address] [facility] [address] [place] [address] PCP - GeneralInternal Medicine02/13/23 Goals (unrecognized section and content) Goals may be documented in a n alternate section FOR RECORDS PERTAINING TO PATIENTS WHO ARE OR HAVE BEEN ENROLLED IN A CHEMICAL DEPENDENCY/SUBSTANCEABUSE PROGRAM, SOME INFORMATION MAY BE OMITTED. This clinical summary was aggregated from multiple sources. Caution should be exercised in using it in the provision of clinical care. This summary normalizes information from multiple sources, and as a consequence, information in this document may materially change the coding, format and clinical context of patient data. In addition, data may be omitted in some cases. CLINICAL DECISIONS SHOULD BE BASED ON THE PRIMARY CLINICAL RECORDS. [employer] [facility]. provides no warranty or guarantee of the accuracy or completeness of information in this document.
--- NOTE | 2025-08-09 10:59 | CT_ITS ---
The [address] [address] Patient Name: WILMA RENTERIA MRN: [id number] date: 1955 Sex: M Assigned Patient Location: CT Current Patient Location: CT Accession/Order Number: [id number] Exam Date: 08/09/2025 11:01 Report Date: 08/09/2025 11:43 At the request of: DULCE MARIA AGUILA Procedure: CT lung screening low-dose LOW-DOSE SCREENING CHEST CT WITHOUT CONTRAST COMPARISON: 03/02/2024 CLINICAL DATA: Current smoker with 40 pack year history Spiral axial unenhanced low-dose images were obtained through the chest. Images were reviewed using both narrow and wide window settings. This CT exam was performed using one or more following dose reduction techniques: Automated exposure control, adjustment of the mA and/or kV according to patient size, or use of iterative reconstruction technique. The heart is normal in size. No pericardial effusion is seen. There is minor coronary disease. No aortic aneurysm is present. Seminal plaque at the aortic arch, descending aorta and proximal great vessels. No developing lymphadenopathy is noted. There is subtle levoscoliotic curvature and mild degenerative changes at the spine. There are similar lower thoracic wedge deformities. There is advanced obstructive lung disease with airspace lucencies and subpleural blebs. There is minor atelectasis or scarring. No developing consolidation, pleural effusion or pneumothorax is seen. There is nodularity associated with the fissures on both sides. The largest on the right measures 13 mm and on the left 7 mm. These are probably intrapulmonary lymph nodes. There is an irregular 6-7 mm nodule within the right middle lobe along the minor fissure. It appears to be new though this also is still likely a lymph node. There are multiple additional tiny noncalcified nodules bilaterally which are new. The largest on the right is at the medial right lower lobe on axial image 232 measuring up to 4 mm. The largest on the left is also at the lower lobe on axial image 219 measuring 5 mm. Limited imaging through the upper abdomen shows no contributory findings. CT/CT lung screening low-dose IMPRESSION: SEVERE OBSTRUCTIVE LUNG DISEASE. MULTIPLE PULMONARY NODULES, LARGEST ASSOCIATED WITH THE FISSURES AND LIKELY INTRAPULMONARY LYMPH NODES. NEW NONCALCIFIED NODULES MEASURING UP TO 5 MM. Lung RADS category 3 - probably benign Six-month low-dose CT follow-up suggested Impression dictated by: Little Rogers M.D. 08/09/2025 11:43 AM Dictation Location: [place] [address] Electronically authenticated by: [id number] Y Date: 08/09/2025 11:43
== END 2025-08-09 10:53 | disposition home or self-care (01) ==
LOC: CT 10:52
PROVIDERS: PCP Internal Medicine; Visit Provider Internal Medicine
DX: F17.210 Nicotine dependence, cigarettes, uncomplicated (principal)
CPT/HCPCS: 71271